=== PATIENT | male | born 1950 | race Caucasian/White ===

== ENCOUNTER → 2020-12-19 08:02 | Outpatient (BNVA) | payer MEDICARE, BC, SELFPAY | PROVIDERS: PCP Family Medicine; Visit Provider Specialist | DX: G43.709 Chronic migraine without aura, not intractable, without status migrainosus (principal); R26.9 Unspecified abnormalities of gait and mobility; R26.81 Unsteadiness on feet; G31.84 Mild cognitive impairment of uncertain or unknown etiology; G62.9 Polyneuropathy, unspecified; Z87.891 Personal history of nicotine dependence | CPT/HCPCS: 99205 ==

== ENCOUNTER 2020-12-19 09:53 | Outpatient (CLI) | payer MEDICARE, BC, SELFPAY ==
[2020-12-19 11:10] LABS: Thyroid Stimulating Hormone 2.66 uIU/mL (0.27-4.20); Vitamin B12 1399 pg/mL (232-1245)
[2020-12-19 11:20] LABS: Folate Level 4.6 ng/mL (4.5-32.2)
[2020-12-22 16:18] LABS: Methylmalonic Acid 140 nmol/L (87-318)
== END 2020-12-19 09:54 | disposition home or self-care (01) ==
PROVIDERS: PCP Family Medicine; Visit Provider Specialist
DX: R41.3 Other amnesia (principal); R26.81 Unsteadiness on feet
CPT/HCPCS: 36415; 82607; 82746; 83921; 84443

== ENCOUNTER → 2021-05-07 08:00 | Outpatient (BNVA) | payer MEDICARE, BC, SELFPAY | PROVIDERS: PCP Family Medicine; Visit Provider Specialist | DX: G31.84 Mild cognitive impairment of uncertain or unknown etiology (principal); G43.909 Migraine, unspecified, not intractable, without status migrainosus; G62.9 Polyneuropathy, unspecified; Z87.891 Personal history of nicotine dependence | CPT/HCPCS: 96116; 99214 ==